=== PATIENT | female | born 2005 ===

== ENCOUNTER 2024-06-24 11:04 | Emergency (ER) | payer OTHER, SELFPAY ==
[2024-06-24 11:06] VITALS: BP 93/62; PULSE 69; RESP 16; TEMP 36.8; O2SAT 100; BMI 26.9
--- NOTE | 2024-06-24 11:10 | ED.GENADULT ---
HPI - General Adult General Chief complaint: Urogenital-Female Stated complaint: UTI Pain w/Urination Time Seen by Provider: 06/24/24 11:37 Source: patient, RN notes reviewed and old records reviewed Mode of arrival: ambulatory Limitations: no limitations History of Present Illness ED Provider: Mellisa HPI narrative: Patient is a 19-year-old female presenting with complaint of dysuria and suprapubic pain for one day. Denies frequency, fevers. Unsure possibility of but on OCPs. MD complaint: dysuria Onset (ago): day(s) Related Data Previous Rx's ?Medication ?Instructions ?Recorded cefuroxime axetil 250 mg tablet 250 mg PO BID #14 tabs 06/24/24 phenazopyridine 200 mg tablet 200 mg PO TID PRN pain 6 doses #6 06/24/24 tabs Allergies Allergy/AdvReac Type Severity Reaction Status Date / Time No Known Allergies Allergy Verified 06/24/24 11:10 Review of Systems Review of Systems: As per HPI Yes all other systems are reviewed and are negative Constitutional: Constitutional: Reports as per HPI [facility] Social History Social History Advance Directives: No Advance Directives Information Provided: Yes Physical Exam ED Vital Signs: Vital Signs - 24 hr 06/24/24 11:06 Temperature 98.2 F Pulse Rate 69 Respiratory Rate 16 Blood Pressure 93/62 Pulse Oximetry 100 Oxygen Delivery Method Room Air BMI result Body Mass Index 26.9 Vital signs have been reviewed and appear to be correct. Blood pressure normal. Heart rate normal. Respiratory rate normal. Temperature normal. Oxygen saturation normal. Const General: cooperative, healthy appearing and no acute distress Orientation/consciousness: oriented to person, oriented to place, oriented to time and patient oriented x3 Limitations: no limitations HENMA Head: Yes normocephalic and Yes atraumatic Ears: external ears normal General nose exam: Normal external nose present Face and sinus: Yes face symmetric Mouth: oropharynx normal and moist mucous membranes Throat: Yes uvula midline Eyes Pupils: Equal, round and reactive pupils present Neck Neck: Yes normal visual inspection and Yes supple Resp Effort & Inspection: normal respiratory effort and able to speak in complete sentences Auscultation: clear to auscultation bilaterally Cardio Rate: regular rate Rhythm: regular rhythm Heart sounds: S1 normal heart sound present and S2 normal heart sound present GI Palpation (GI): Soft to palpation and nontender Auscultation: normoactive bowel sounds General: Yes no CVA tenderness Back/Spine/Pelvis Back: no CVA tenderness Skin General skin exam: elasticity normal and turgor normal Neuro General: oriented to person, oriented to place, oriented to time, patient oriented x3, moves all extremities, no focal motor deficits and CN's II-XI intact bilaterally Cranial nerves: Yes Equal, round and reactive pupils present Cognition (Neuro): normal cognition Extrem General: Yes full ROM, Yes no pedal edema and Yes no calf tenderness Psych Mental Status: mental status grossly normal Affect: normal affect Thought process: Normal thought process present Course Course Course Narrative: This is a rapid medical exam performed by Lew Pak NP: Additional HPI, ROS, PE not included below will be deferred to primary provider. Patient is a 19-year-old female presenting with complaint of dysuria and suprapubic pain for one day. Plan: UA, Upreg Medical Decision Making Medical Decision Making [facility] Narrative: Patient is a 19-year-old female presenting with complaint of dysuria and suprapubic pain for one day. On exam patient is awake, A+Ox3, VS WNL, afebrile, normal neurological exam without focal deficits, physical exam findings as above. Given reported symptoms and physical exam findings, initial differential includes but is not limited to dysuria, UTI, . Urine notable for 2+ leukocytes, 3+ blood, 2+ bacteria, negative. Will treat for UTI with cefuroxime. Return precautions discussed. Patient verbalized understanding of and agreement with plan. Differential Diagnosis Differential Diagnoses: The differential diagnosis associated with the presentation includes as per [facility] Admission/Observation Consideration of admission/observation: Escalation of care including admission/observation considered Patient would have been admitted to the hospital had their work up had any findings where hospital admission was appropriate and their clinical presentation warranted hospital admission. Lab Data [facility] Lab Attestation statement: I reviewed the patient's lab results. as per [facility] Labs: Lab Results 06/24/24 Range/Units 11:27 Urine Color Yellow Urine Appearance Cloudy Urine pH 6.0 (5.0-9.0) Ur Specific [place] <= 1.005 (1.005-1.025) Urine Protein 30 (1+) H (Neg-Trace) mg/dL Urine Glucose (UA) Negative (Negative) mg/dL Urine Ketones Negative (Negative) mg/dL Urine Blood Large (3+) H (Negative) Urine Nitrite Negative (Negative) Ur Leukocyte Esterase Moderate (2+) H (Negative) Urine RBC 6-10 H (0-2) /HPF Urine WBC 11-20 (0-5) /HPF Ur Squamous Epith Cells 11-20 (0-2) /HPF Ur Renal Epithelial Cell Present Urine Bacteria 2+ (None Seen) Hyaline Casts 0-2 (0-2) /LPF Urine Test NEGATIVE (NEGATIVE) External Record Review External record reviewed: Inpatient record, Office record and Outpatient record Prescription Management I considered prescription management with: Pain Medication and Antibiotic Discharge Plan Discharge Clinical Impression: Urinary tract infection Patient Disposition: Home, Self-Care Instructions: Urinary Tract Infection in Women (DC) Additional Instructions: You have been evaluated in the emergency department today for your urinary symptoms. Your evaluation, including urinalysis, suggests that your symptoms are due to urinary tract infection. Please take your prescribed antibiotics for the full course of medication as directed. Please follow-up with your primary care provider within 2 days. Return to the emergency department if you experience fevers 100.4? F or greater, worsening or uncontrolled pain, vomiting, flank pain, or for any other concerning symptoms. Prescriptions: New cefuroxime axetil 250 mg tablet 250 mg PO BID Qty: 14 0RF phenazopyridine 200 mg tablet 200 mg PO TID PRN (Reason: pain) Qty: 6 0RF Print Language: Mauritanian
[2024-06-24 11:35] LABS: Appearance Urine Cloudy; Color Urine Yellow; Glucose Urine UA Negative (Negative); Leukocyte Esterase Urine Moderate (2+) (Negative); Nitrite Urine Negative (Negative); Specific Gravity - Urine <= 1.005 (1.005-1.025); UMIC TRIGGER UACC YES; Urine Blood Large (3+) (Negative); Urine Ketones Negative (Negative); Urine Protein 30 (1+) mg/dL (Neg-Trace)
[2024-06-24 11:36] LABS: UPreg QC Valid YES
[2024-06-24 11:37] LABS: Urine Pregnancy NEGATIVE (NEGATIVE)
[2024-06-24 12:00] LABS: Bacteria Urine 2+ (None Seen); Hyaline Casts Urine 0-2 /LPF (0-2); Renal Epithelial Cells Urine Present; UACC Culture Trigger YES
--- OUTSIDE RECORDS SUMMARY | 2024-06-24 12:25 | XMS_ITS | Clinical Summary ---
Author Organization [address] Address [address] [place] [phone] Phone Care Team Providers Care Regulator Pin Inserter Name Role Phone Physician, Pcp Unknown Primary Care Provider Stephanie vailable Allergies No known active allergies Medications ferrous gluconate (FERGON) 324 mg (38 mg iron) tablet Take 1 tablet (324 mg total) by mouth 1 (one) time each day. 11/08/2023 Active norethindrone-et hinyl estradiol (Necon 0.5/35, 28,) 0.5-35 mg-mcg per tablet Take 1 tablet by mouth 1 (one) time each day. 11/06/2023 Active levothyroxine (SYNTHROID, LEVOTHROID) 25 mcg tabletIndication s:Abnormal laboratory test Take 1 tablet (25 mcg total) by mouth 1 (one) time each day before breakfast. 90 tablet 1 03/24/2024 Active Surgical History Surgery Date Site/Laterality Comments OTHER SURGICAL HISTORY PROCEDURE: DENIES PREVIOUS SURGERY Medical History Medical History Date Comments Patient denies medical problems DX:Patient denies medical problems Family History Medical History Relation Name Comments Uterine cancer Maternal Grandmother Breast cancer Neg Hx Ovarian cancer Neg Hx Relation Name Status Comments Father Alive Maternal Grandmother Alive Mother Alive Social History Tobacco Use Types Packs/Day Years Used Date Smoking Tobacco: Never Smokeless Tobacco: Never Tobacco Cessation:Counseling Given: Not Answered Alcohol Use Standard Drinks/Week Comments Never 0 (1 standard drink = 0.6 oz pur e alcohol) Comments Unknown Sex and Gender Information Value Date Recorded Sex Assigned at Female 02/13/2024 7:51 AM EST Legal Sex Female 11:38 AM EDT Gender Identity Female 02/13/2024 7:51 AM EST Sexual Orientation Choose not to disclose 2024 7:51 AM EST Obstetrics History Last Filed Vital Signs Vital Sign Reading Time Taken Comments Blood Pressure 100/64 02/13/2024 8:34 AM EST Pulse 81 02/13/2024 8:34 AM EST Temperature 36.2 ??C (97.2 ??F) 02/13/2024 8:34 AM ES T Respiratory Rate - - Oxygen Saturation 98% 02/13/2024 8:34 AM EST Inhaled Oxygen Concentration - - Weight 69.4 kg (153 lb) 02/13/2024 8:34 AM EST Height 160 cm (5' 3 ) 02/13/2024 8:34 AM EST Body Mass Index 27.1 02/13/2024 8:34 AM EST Plan of Treatment Health Maintenance Due Date Last Done Comments Gonorrhea/Chlamydia Screening 2004 Varicella Vaccines (1 of 2 - 13+ 2-dose series) 02/21/2017 HPV Vaccines (1 - 3-dose series) 02/21/2019 Meningococcal B Vaccine (1 o f 2 - Standard) 2020 DTaP,Tdap,and Td Vaccines (1 - Tdap) 02/21/2023 Hepatitis B Vaccines (1 of 3 - 19+ 3-dose series) 02/21/2023 COVID-19 Vaccine (1 - 2023-2 5 season) 2023 Annual Well Child Visit (3-2 1 years old) 11/25/2023 Depression Screening 11/25/2023 HIV Screening 11/25/2023 Hepatitis C Screening 11/25/2023 Social Influencers of Health Screening 11/25/2023 Influenza Vaccine (Season Ended) 2024 HIB Vaccines Aged Out No longer eligi ble based on patient's age to complete this topic Hepatitis A Vaccines Aged Out No long er eligible based on patient's age to complete this topic IPV Vaccines Aged Out No longer eligi ble based on patient's age to complete this topic MMR Vaccines Aged Out No longer eligi ble based on patient's age to complete this topic Meningococcal ACWY Vaccine Aged Out N o longer eligible based on patient's age to complete this topic Pneumococcal Vaccine: Pediat rics (0 to 5 Years) and At-Risk Patients (6 to 64 Years) Aged Out No longer eligible b ased on patient's age to complete this topic RSV Immunization Patients Un brianna 20 months Aged Out No longer eligible b ased on patient's age to complete this topic Insurance [facility] [place] [id number] Care Teams Regulator Pin Inserter Relationship Specialty Start Date End Date Physician, Pcp Unknown PCP - General 03/09/24
== END 2024-06-24 12:23 | disposition home or self-care (01) ==
PROVIDERS: Registered Nurse Emergency; Emergency Provider Emergency Medicine
DX: N39.0 Urinary tract infection, site not specified (principal); R30.0 Dysuria; R31.9 Hematuria, unspecified; R10.2 Pelvic and perineal pain; Z79.899 Other long term (current) drug therapy
CPT/HCPCS: 81001; 81025; 87086; 99282; 99283

== ENCOUNTER 2024-09-08 12:56 | Emergency (ER) | payer OTHER, SELFPAY ==
--- NOTE | ~2024-09-08 | CT_ITS ---
EXAMINATION: CT ABDOMEN AND PELVIS WITH CONTRAST CLINICAL INFORMATION: Diffuse abdominal pain, nausea and vomiting. COMPARISON: None available. TECHNIQUE: Multidetector volumetric images were obtained from the superior aspect of the liver through the pubic symphysis following administration 85 mL of Omnipaque 350 intravenous contrast. Sagittal and coronal reformatted images were obtained on the technologist's workstation. Oral contrast: No This CT examination was performed using dose optimization techniques as appropriate, variously including the following: *Automated exposure control *Adjustment of mA and/or kV according to patient size (this includes techniques or standardized protocols for targeted exams where dose is matched to indication/reason for exam; i.e. extremities or head) *Use of iterative reconstruction technique FINDINGS: Study is significantly limited due to motion artifact throughout the majority of the mid aspect of the scan. This significantly limits the sensitivity of the study. LUNG BASES: Mild motion artifact. Lung bases are clear. No effusions or consolidations. Normal heart size. LIVER, GALLBLADDER, AND BILIARY TREE: Motion degradation. The liver is normal in size, shape, and attenuation. No focal hepatic lesion or biliary ductal dilatation is present. The gallbladder is unremarkable with no evidence of radiopaque gallstones, gallbladder wall thickening, or obvious pericholecystic inflammatory changes. PANCREAS: Motion degradation, no gross abnormality. SPLEEN: Motion degradation. No gross abnormality. ADRENAL GLANDS: Unremarkable. KIDNEYS AND URETERS: Motion degradation. The kidneys are normal in size, shape, and attenuation. No gross hydronephrosis, hydroureter, or calculi seen. No perinephric stranding. BLADDER: Unremarkable. GASTROINTESTINAL TRACT: Normal appendix. No acute findings of the small bowel or large bowel allowing for motion degradation, particularly involving the mid and upper abdominal aspect of the bowel structures. No rectal abnormality. ABDOMINAL WALL: No significant hernia is appreciated. LYMPH NODES: No abnormal lymphadenopathy within the confines of motion artifact. VASCULAR: Unremarkable. PELVIC VISCERA: Unremarkable. OSSEOUS STRUCTURES: Unremarkable. CT/CT abdomen pelvis w IV con IMPRESSION: 1. Motion degraded examination, limiting sensitivity. Within these confines, no acute finding in the abdomen or pelvis. Electronically signed by: Dread Loera MD 09/08/2024 04:07 PM EDT
--- NOTE | 2024-09-08 13:13 | ED_ITS ---
HPI - Abdominal Pain General Chief Complaint: Abdominal Pain Stated Complaint: abd pain Time Seen by Provider: 09/08/24 13:41 Source: patient Mode of arrival: ambulatory Limitations: no limitations History of Present Illness ED Provider: Jayda Li PA-C HPI narrative: 19-year-old female presents to the ER for evaluation of diffuse abdominal pain and nausea that started yesterday. She reports the pain is improved to a 7 or an 8 after taking ibuprofen. She reports the pain is mostly in the upper half of her abdomen from the umbilicus to the epigastric area. It is associated with nausea but no vomiting. She had a normal bowel movement this morning without blood or mucus. No known sick contacts. No fever or chills. No chest pain or shortness of breath. Her last menstrual period was 4 days ago and is now resolved. She denies any urinary symptoms, vaginal discharge or bleeding. 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 MD elicited complaint: abdominal pain and other (nausea) Onset (ago): day(s) (1) Pain Consistency: constant Location: diffuse Severity: moderate Pain scale (0-10): 7 Quality: stabbing Radiation: none Migration to: no migration Exacerbating factors: nothing Relieving factors: nothing Associated symptoms: nausea Related Data Previous Rx's ?Medication ?Instructions ?Recorded cefuroxime axetil 250 mg tablet 250 mg PO BID #14 tabs 06/24/24 phenazopyridine 200 mg tablet 200 mg PO TID PRN pain 6 doses #6 06/24/24 tabs ondansetron 4 mg disintegrating 4 mg PO Q8H PRN nausea and 09/08/24 tablet vomiting #7 tabs Allergies Allergy/AdvReac Type Severity Reaction Status Date / Time No Known Allergies Allergy Verified 09/08/24 13:15 Review of Systems Review of Systems Yes all other systems are reviewed and are negative PMFSH Social History Social History Advance Directives: No Advance Directives Information Provided: No Do you have a plan to hurt others: No Plan Physical Exam ED Exam Exam: Appearance: Alert. Oriented X3. No acute distress. Head: normocephalic, atraumatic. Eyes: Pupils equal, round and reactive to light. ENT: Pharynx normal. No tonsillar swelling or exudate. Neck: Normal inspection. Neck supple. CVS: Normal heart rate and rhythm. Pulses normal. Respiratory: No respiratory distress. Breath sounds normal. Abdomen: Soft with moderate diffuse tenderness in the right middle abdomen, right upper quadrant, periumbilical area and left upper quadrant. No rebound or guarding. Normal active +BS x4 Skin: Skin warm and dry. Normal skin color. Normal skin turgor. No rashes. Extremities: No lower extremity edema. No joint swelling. Neuro/psych: Oriented X 3. No motor deficit. No sensory deficit. CN II-XII intact. Normal speech and cognition. Flat affect Vital Signs: Vital Signs - 24 hr 09/08/24 13:14 Temperature 98 F Pulse Rate 68 Respiratory Rate 18 Blood Pressure 100/60 Pulse Oximetry 98 Oxygen Delivery Method Room Air BMI result Body Mass Index 24.8 Course Course Course Narrative: This is an RME performed by Daysi Arteaga CNP: Additional HPI, ROS, PE not included below will be deferred to primary provider. Patient is a 19-year-old female who presents emergency department for evaluation of diffuse abdominal pain, dry heaves/nausea but no vomiting or diarrhea. Denies genitourinary symptoms. Denies possibility for . Plan: Serum labs, urinalysis viral serologies Medical Decision Making Medical Decision Making MDM Narrative: Female with no medical history presents to the ER for evaluation of a diffuse abdominal pain and nausea for the last 1 day. Pain is at a 7 or an 8 and she has tenderness on examination. Her lab work is reassuring with normal LFTs and lipase. CT scan of the abdomen does not show any acute abnormalities. Upon review of the images she does have some moderate stool burden. This may be contributing to her pain. She is tolerating p.o. here. She is feeling better after Toradol and fluids. At this time discharge home with bland diet, laxatives prn and outpatient follow-up is appropriate. Patient agrees with plan is stable for discharge home Differential Diagnosis Differential Diagnoses: The differential diagnosis associated with the presentation includes Gastritis, gastroenteritis, pancreatitis, cholecystitis, diverticulitis, appendicitis, UTI Lab Data [facility] Lab Attestation statement: I reviewed the patient's lab results. Mild anemia, normal LFTs and lipase 09/08/24 13:29 09/08/24 13:29 Labs: Lab Results 09/08/24 Range/Units 13: WBC 4.9 (4.8-10.8) X10*3/uL RBC 3.81 L (4.20-5.50) X10*6/uL Hgb 9.9 L (12.0-16.0) g/dl Hct 30.8 L (37.0-47.0) % MCV 80.8 (80.0-98.0) fL MCH 26.0 L (27.0-33.0) pg MCHC 32.1 (31.0-35.0) g/dl RDW 15.2 (11.0-16.0) % Plt Count 312 (160-400) X10*3/uL MPV 9.3 L (9.4-12.3) fL Immature Gran % (Auto) 0.2 (0.0-0.4) % Neut % (Auto) 36.9 L (45-73) % Lymph % (Auto) 52.5 H (20-40) % [place] % (Auto) 5.7 (2-11) % Eos % (Auto) 4.5 H (0-4) % Baso % (Auto) 0.2 (0-2) % Lymph # (Auto) 2.6 (1.2-4.9) X10*3/uL [place] # (Auto) 0.3 (0.1-1.2) X10*3/uL Eos # (Auto) 0.2 (0.0-0.4) X10*3/uL Baso # (Auto) 0.0 (0.0-0.2) X10*3/uL Abs Immat Gran (auto) 0.01 (0.00-0.03) X10*3/uL Absolute Neuts (auto) 1.8 L (2.0-8.3) x10*3/uL Absolute Nucleated RBC 0.000 (0.0-0.012) X10*3/uL Nucleated RBC % (auto) 0.0 (0.0-0.2) /100WBC Sodium 138 (135-145) mmol/L Potassium 3.7 (3.3-5.1) mmol/L Chloride 109 H (96-108) mmol/L Carbon Dioxide 23 (22-29) mmol/L Anion Gap 10 L (12-20) BUN 10 (9-16) mg/dL Creatinine 0.74 (0.5-1.4) mg/dL Estim Creat Clear Calc 108.8 Estimated GFR > 60 Random Glucose 107 (60-115) mg/dL Calcium 8.8 (8.4-10.2) mg/dL Total Bilirubin 0.4 (0.0-1.0) mg/dL AST 27 (5-31) U/L ALT 13 (0-31) U/L Alkaline Phosphatase 62 (39-117) U/L Total Protein 7.1 (6.5-8.0) g/dL Albumin 4.0 (3.5-5.0) g/dL Lipase 26 (8-78) U/L Urine Color Yellow Urine Appearance Clear Urine pH 8.0 (5.0-9.0) Ur Specific [place] 1.015 (1.005-1.025) Urine Protein Negative (Neg-Trace) mg/dL Urine Glucose (UA) Negative (Negative) mg/dL Urine Ketones Negative (Negative) mg/dL Urine Blood Negative (Negative) Urine Nitrite Negative (Negative) Ur Leukocyte Esterase Trace H (Negative) Urine RBC 0-2 (0-2) /HPF Urine WBC 0-5 (0-5) /HPF Ur Squamous Epith Cells 6-10 (0-2) /HPF Urine Bacteria 2+ (None Seen) Hyaline Casts 0-2 (0-2) /LPF Urine Test NEGATIVE (NEGATIVE) Independent Interpretation I performed an independent interpretation of an: CT Scan Interpretation: CT scan with some food contents in the stomach and proximal small intestine, no air-fluid levels to suggest obstruction, no colonic inflammation, no visible abscess or perforation Radiology Impression Discussion of test interpretation with radiology: I have reviewed the radiologist's reading. Prescription Management I considered prescription management with: Pain Medication and Antibiotic Medications Administered Discontinued Medications Generic Name Dose Route Start Last Admin Trade Name Freq PRN Reason Stop Dose Admin Iohexol 100 ml 09/08/24 15:50 09/08/24 15:53 Iohexol 350 Mg/Ml 100 Ml Infus..Btl IV 09/08/24 15:51 85 ml ONCE ONE Administration Ketorolac Tromethamine 15 mg 09/08/24 14:14 09/08/24 14:45 Ketorolac Tromethamine 15 Mg/Ml Vial IVPUSH 09/08/24 14:15 15 mg ONCE ONE Administration Ondansetron HCl 4 mg 09/08/24 14:14 09/08/24 14:46 Ondansetron Hcl 4 Mg/2 Ml Vial IVPUSH 09/08/24 14:15 4 mg ONCE ONE Administration Critical Care Time Critical Care Time Critical Care Time: No Discharge Plan Discharge Clinical Impression: Abdominal pain Qualifiers: Abdominal location: generalized Qualified Code(s): R10.84 - Generalized abdominal pain Patient Disposition: Home, Self-Care Instructions: Abdominal Pain (ED) Additional Instructions: Your lab workup today was reassuring. Your CT scan did not show any acute abnormalities. You have a large amount of stool in your colon, this may be causing some of your abdominal pain. Recommend [id number] laxatives as needed to have regular, soft bowel movements. Stick to a bland diet where not feeling well. Take the prescribed nausea medication as needed. Prescriptions: New ondansetron 4 mg tablet,disintegrating 4 mg PO Q8H PRN (Reason: nausea and vomiting) Qty: 7 0RF No Action cefuroxime axetil 250 mg tablet 250 mg PO BID Qty: 14 0RF phenazopyridine 200 mg tablet 200 mg PO TID PRN (Reason: pain) Qty: 6 0RF Stand Alone Forms: Work/School Release Print Language: Frisian
[2024-09-08 13:14] VITALS: BP 100/60; PULSE 68; RESP 18; TEMP 36.6; O2SAT 98; BMI 24.8
--- NOTE | 2024-09-08 13:42 | PC.NURSE ---
Patient refused SARS/Flu/RSV swab. Blood work previously drawn, results pending.
[2024-09-08 13:44] LABS: Hematocrit 30.8 % (37.0-47.0); Hemoglobin 9.9 g/dl (12.0-16.0); Imm Gran Abs Auto 0.01 X10*3/uL (0.00-0.03); Imm Gran Pct Auto 0.2 % (0.0-0.4); Lymphocytes Absolute Auto 2.6 X10*3/uL (1.2-4.9); MANUAL DIFF FLAG NO; Mean Corpuscular HGB Conc 32.1 g/dl (31.0-35.0); Mean Corpuscular Hemoglobin 26.0 pg (27.0-33.0); Mean Corpuscular Volume 80.8 fL (80.0-98.0); NRBC Abs Auto 0.000 X10*3/uL (0.0-0.012); NRBC Pct Auto 0.0 /100WBC (0.0-0.2); Platelet Count 312 X10*3/uL (160-400); Red Blood Count 3.81 X10*6/uL (4.20-5.50); White Blood Count 4.9 X10*3/uL (4.8-10.8)
[2024-09-08 13:46] LABS: Appearance Urine Clear; Glucose Urine UA Negative (Negative); PH 8.0 (5.0-9.0); Specific Gravity - Urine 1.015 (1.005-1.025); UMIC TRIGGER UACC YES
[2024-09-08 13:47] LABS: UPreg QC Valid YES
[2024-09-08 14:00] LABS: Alanine Aminotransferase 13 U/L (0-31); Albumin Level 4.0 g/dL (3.5-5.0); Alkaline Phosphatase 62 U/L (39-117); Anion Gap 10 (12-20); Aspartate Amino Transferase 27 U/L (5-31); Blood Urea Nitrogen 10 mg/dL (9-16); Calcium 8.8 mg/dL (8.4-10.2); Carbon Dioxide 23 mmol/L (22-29); Chloride 109 mmol/L (96-108); Creatinine Clr Calc Pharmacy 108.8; Estimated Glomerular Filt Rate > 60; Lipase 26 U/L (8-78); Potassium 3.7 mmol/L (3.3-5.1); Sodium 138 mmol/L (135-145); Total Protein 7.1 g/dL (6.5-8.0)
--- OUTSIDE RECORDS SUMMARY | 2024-09-08 14:35 | XMS_ITS | Clinical Summary ---
Author Organization [address] Address [address] [place] [phone] Phone Care Team Providers Care Bit Gatherer Name Role Phone Physician, Pcp Unknown Primary [...] 81 02/13/2024 8:34 AM EST Temperature 36.2 C (97.2 F) 02/13/2024 8:34 AM EST Respiratory Rate - - Oxygen Saturation 98% [...] Child Visit (3-2 1 years old) 11/25/2023 HIV Screening 11/25/2023 Hepatitis C Screening 11/25/2023 Social Influencers of Health Screening 11/25/2023 Depression Screening 02/12/2024 Influenza Vaccine (#1) 2024 HIB Vaccines Aged Out No longer [...] 5 Years) and At-Risk Patients (6 to 49 Years) Aged Out No longer eligible b ased on patient's age to complete this topic RSV Immunization Patients Un brianna 20 months Aged Out No longer eligible b ased on patient's age to complete this topic Insurance [facility] [employer] Care Teams Bit Gatherer Relationship Specialty Start Date End Date Physician, Pcp Unknown PCP - General 03/09/24
--- NOTE | 2024-09-08 15:51 | PC.NURSE ---
Back documentation This nurse obtained IV access in left AC, pt tolerated it well. PT states her mid abd pain is out of 10. Warm blanket given call kendrick within reach.
[2024-09-08] MEDS: iohexoL 350 MG/ML 100 ML INFUS..BTL IV (15:53)
--- NOTE | 2024-09-08 16:30 | MHC.EDTECH ---
Patient refused to have SARS swab done.
[2024-09-08 17:00] VITALS: BP 100/60; PULSE 68; RESP 18; TEMP 36.6; O2SAT 98
== END 2024-09-08 17:00 | disposition home or self-care (01) ==
PROVIDERS: Nurse Practitioner Family; Emergency Provider Emergency Medicine
DX: R10.84 Generalized abdominal pain (principal)
CPT/HCPCS: 74177; 80053; 81001; 81025; 83690; 85025; 96374; 96375; 99283; 99284; J1885; J2405; Q9967

== ENCOUNTER → 2024-09-08 14:14 | Outpatient (BNV) | payer OTHER, SELFPAY | PROVIDERS: Emergency Provider Emergency Medicine; Visit Provider Radiology Diagnostic Radiology | DX: R10.84 Generalized abdominal pain (principal) | CPT/HCPCS: 74177 ==

== ENCOUNTER 2024-12-12 18:41 | Emergency (ER) | payer OTHER, SELFPAY ==
--- OUTSIDE RECORDS SUMMARY | 2024-12-07 08:45 | XMS_ITS | Encounter Summary ---
Author Organization [facility] Address [id number] [place] [phone] Care Team Providers Care Record Changer Name Role Phone Nayeli Saeed ELECTROTYPE SERVICER Primary Care Provider + [phone] Reason for Visit * Reason Comments painful cycle Encounter Details Date Type Department Care Team ([facility] st Contact Info) Description 12/07/2024 8:45 AM EDT Office Visit Obstetrics and Gynecology [address] [phone] Quynh Conklin, [address] [address] Irregular periods (Primary Dx) Social History Tobacco Use Types Packs/Day Years Used Date Smoking Tobacco: Never Smokeless Tobacco: Never Alcohol Use Standard Drinks/Week Comments Never 0 (1 standard drink = 0.6 oz pur e alcohol) Comments Unknown Sex and Gender Information Value Date Recorded Sex Assigned at Female 02/13/2024 7:51 AM EST Legal Sex Female 11:38 AM EDT Gender Identity Female 02/13/2024 7:51 AM EST Sexual Orientation Choose not to disclose 2024 7:51 AM EST documented as of this encounter Last Filed Vital Signs Vital Sign Reading Time Taken Comments Blood Pressure 99/55 12/07/2024 8:50 AM EDT Pulse 72 12/07/2024 8:50 AM EDT Temperature - - Respiratory Rate 14 12/07/2024 8:50 AM EDT Oxygen Saturation - - Inhaled Oxygen Concentration - - Weight 68.9 kg (151 lb 12.8 oz) 12/07/2024 8:50 AM EDT Height 156 cm (5' 1.42 ) 12/07/2024 8:50 AM EDT Body Mass Index 28.29 12/07/2024 8:50 AM EDT documented in this encounter Progress Notes * Quynh Kimlisy, LORENA - 12/07/2024 8:45 AM EDT 12/07/2024 Chief Complaint Patient presents with painful cycle Subjective: Celestina Burgos is a 19 y.o. who presents for irreg periods. States she stopped taking OCPs because she did not like how she felt on them, periods are coming monthly but sometimes restart three days after they finish. Would like PCOS testing to make sure I still have it . Denies ever being SA Review of Systems: As in HPI. Problem List[1] Medical History[2] Surgical History[3] Family History[4] Social History Socioeconomic History Marital status: Unknown Spouse name: Not on file Number of children: Not on file Years of education: Not on file Highest education level: Not on file Occupational History Not on file Tobacco Use Smoking status: Never Smokeless tobacco: Never Substance and Sexual Activity Alcohol use: Never Drug use: Never Sexual activity: Not on file Other Topics Concern Not on file Social History Narrative Not on file OB History No obstetric history on file. Prior to Admission medications Medication Sig Start Date End Date Taking? Authorizing Provider ferrous gluconate (FERGON) 324 mg (38 mg iron) tablet Take 1 tablet (324 mg total) by mouth 1 (one)time each day. 11/08/23 Historical Provider, levothyroxine (SYNTHROID, LEVOTHROID) 25 mcg tablet Take 1 tablet (25 mcg total) by mouth 1 (one) time each day before breakfast. 03/24/24 Rupert Mak MD norethindrone-ethinyl estradiol (Necon 0.5/35, 28,) 0.5-35 mg-mcg per tablet Take 1 tablet by mouth1 (one) time each day. 11/06/23 Historical Provider, Allergies[5] Objective: Vitals: 12/07/24 0850 BP: 99/55 Pulse: 72 Resp: 14 Weight: 68.9 kg (151 lb 12.8 oz) Height: 1.56 m (61.42 ) Gen: Well-appearing on today's exam NEUROLOGIC: speech fluent, grossly intact PSYCH: Mood and affect appropriate. Alert and oriented x 3. Assessment/Plan: 19 y.o. with: 1. Irregular periods Testosterone, total Follicle stimulating hormone Estradiol 52-Bkqlr-Vtwkufuygvaxajusvav Orders Placed This Encounter Procedures Testosterone, total Standing Status: Future Expiration Date: 12/07/2025 Release to patient: Immediate [1] Follicle stimulating hormone Standing Status: Future Expiration Date: 12/07/2025 Estradiol Standing Status: Future Expiration Date: 12/07/2025 37-Evtqw-Ixyarojklpsntzpbxvs Standing Status: Future Expiration Date: 12/07/2025 Discussed that the dx was made d/t appearance of ovaries on u/s and sx of hyperandrogenism but we can do labwork for confirmation. Pt declines tx at this time, discussed importance of periods at least q 3 months and to let us know if she would like to discuss alternatives to OCPs. Also discussed other health risks of PCOS including DM and elevated lipids, advised to follow with PCP. Quynh Conklin CNM [1] There is no problem list on file for this patient. [2] Past Medical History: Diagnosis Date Patient denies medical problems DX:Patient denies medical problems [3] Past Surgical History: Procedure Laterality Date OTHER SURGICAL HISTORY PROCEDURE: DENIES PREVIOUS SURGERY [4] Family History Problem Relation Name Age of Onset Uterine cancer Maternal Grandmother 74.00 Breast cancer Neg Hx Ovarian cancer Neg Hx [5] No Known Allergies documented in this encounter Plan of Treatment Not on file documented as of this encounter Procedures Procedure Name Priority Date/Time Associated Diagnosis Comments 18-[id number]-ULCKCHXZTBL ESTERONE Routine 12/07/2024 9:20 AM EDT Irregular periods ESTRADIOL Routine 12/07/2024 9:20 AM EDT Irregular periods COMPLETE BLOOD COUNT Routine 12/07/2024 9:20 AM EDT Irregular periods TESTOSTERONE, TOTAL Routine 12/07/2024 9 :20 AM EDT Irregular periods FOLLICLE STIMULATING HORMONE Routine 12/07/2024 9:20 AM EDT Irregular periods documented in this encounter Results * (ABNORMAL) Complete blood count (12/07/2024 9:20 AM EDT) WBC 4.7(L) 4.8 - 10.8 K/mcL LAB HEMETOLOGY METHOD 12/07/2024 10:[address] [facility] RBC 4.10 3.80 - 4.80 M/mcL LAB HEMETOLOGY METHOD 12/07/2024 10:[address] [facility] Hemoglobin 10.2(L) 11.5 - 16.0 g/dL LAB HEMETOLOGY METHOD 12/07/2024 10:[address] [facility] Hematocrit 33.8(L) 35.0 - 47.0 % LAB HEMETOLOGY METHOD 12/07/2024 10:[address] [facility] MCV 82.2 79.0 - 98.0 FL LAB HEMETOLOGY METHOD 12/07/2024 10:[address] [facility] MCH 24.8(L) 27.0 - 32.0 pcg LAB HEMETOLOGY METHOD 12/07/2024 10:[address] [facility] MCHC 30.2(L) 32.0 - 37.0 g/dL LAB HEMETOLOGY METHOD 12/07/2024 10:[address] [facility] RDW 15.7(H) 11.0 - 15.0 % LAB HEMETOLOGY METHOD 12/07/2024 10:[address] [facility] Platelets 315 130 - 400 K/mcL LAB HEMETOLOGY METHOD 12/07/2024 10:[address] [facility] MPV 10.4 7.0 - 11.0 FL LAB HEMETOLOGY METHOD 12/07/2024 10:[address] [facility] NRBC 0.0 <1.0 % LAB HEMETOLOGY METHOD 12/07/2024 10:[address] [facility] NRBC Absolute 0.00 <0.10 K/[facility] LAB HEMETOLOGY METHOD 12/07/2024 10:[address] [facility] Blood Venous blood specimen / Unknown Venipuncture / Unknown 12/07/2024 9:20 AM EDT 12/07/2024 9:20 AM EDT [facility] BLOOD ORDERABLES Final Result [facility] [address] [place] [address], * 99-Tibem-Xebievlpxfxpvlyxcrb (12/07/2024 9:20 AM EDT) 17-alpha Hydroxyprogesterone 98 35 - 413 ng/dL 12/09/2024 10:56 AM EDT [facility] Comment: Test performed at [facility], [address] , [place] [address] Adriana Muñoz MD, PhD - Mcat Instructor Blood Venous blood specimen / Unknown Venipuncture / Unknown 12/07/2024 9:20 AM EDT 12/07/2024 9:20 AM EDT Quynh Conklin [facility] BLOOD ORDERABLES Final Result Performing Organization Address City/[facility]/ZIP Co de Phone Number [facility] [address] [place] [address] * Estradiol (12/07/2024 9:20 AM EDT) Estradiol 51 See below pcg/mL LAB CHEMISTRY METHOD 12/07/2024 2:[address] [facility] Comment: ESTRADIOL REFERENCE RANGES (PG/ML) FEMALES NORMALLY MENSTRUATING: FOLLICULAR PHASE 21.4 - 164.8 MIDCYCLE PEAK 49.9 - 367.2 LUTEAL PHASE 40.2 - 259.0 POSTMENOPAUSAL: ON HRT <11 - 462.1 UNTREATED <11 - 58.3 Fulvestrant has been shown to cross-react with the estradiol assay and cause falsely elevated results. For patients being treated with fulvestrant, Estradiol ultrasensitive should be ordered. This test is performed by LC/MS and is not expected to show cross reactivity to fulvestrant. Blood Venous blood specimen / Unknown Venipuncture / Unknown 12/07/2024 9:20 AM EDT 12/07/2024 9:20 AM EDT Quynh [facility] LAB BLOOD ORDERABLES Final Result Performing Organization Address [facility] Co de Phone Number [facility] [address] [place] [address], * Follicle stimulating hormone (12/07/2024 9:20 AM EDT) [facility] Follicle Stimulating Hormone 7.1 See Comment mIU/mL LAB CHEMISTRY METHOD 12/07/2024 5:[address] [facility] Comment: FSH REFERENCE RANGES (MIU/ML) FEMALES NORMALLY MENSTRUATING: FOLLICULAR PHASE 2.3 - 12.6 MIDCYCLE PEAK 5.2 - 17.5 LUTEAL PHASE 1.7 - 9.5 POSTMENOPAUSAL: ON HRT 5.9 - 72.8 UNTREATED 12.7 - 132.2 Blood Venous blood specimen / Unknown Venipuncture / Unknown 12/07/2024 9:20 AM EDT 12/07/2024 9:20 AM EDT Quynh [facility] LAB BLOOD ORDERABLES Final Result Performing Organization Address [facility]/ZIP Co de Phone Number [facility] [address] [place] [address], * Testosterone, total (12/07/2024 9:20 AM EDT) [facility] Testosterone 24 15 - 42 ng/dL LAB CHEMISTRY METHOD 12/07/2024 6:[address] [facility] Blood Venous blood specimen / Unknown Venipuncture / Unknown 12/07/2024 9:20 AM EDT 12/07/2024 9:20 AM EDT Quynh Conklin CNM LAB BLOOD ORDERABLES Final Result [facility]) [facility] [address] [place] [address], documented in this encounter Visit Diagnoses Diagnosis Irregular periods- Primary documented in this encounter Care Teams Record Changer Relationship Specialty Start Date End Date Nayeli Saeed NP [address] [place] [phone] PCP - General Pediatrics 12/07/24 documented as of this encounter
--- OUTSIDE RECORDS SUMMARY | 2024-12-11 12:43 | XMS_ITS | Encounter Summary ---
Author Organization [facility] Address [address] [place] [phone] Care Team Providers Care Remote Computer Terminal Operator Name Role Phone Nayeli Saeed ART MUSEUM AIDE Primary Care Provider [phone]- [phone] Reason for Referral * Imaging (Routine) - Authorized Specialty Diagnoses / Procedures Referred By Contac t Referred To Contact Radiology Diagnoses Irregular periods Procedures US Pelvis Non OB Complete w Transvaginal Quynh Conklin CNM [address] [place] [address] Phone: tel: fax: [facility] Referral ID Status Reason Start Date Expiration Date V isits Requested Visits Authorized [id number] Authorized 12/09/2024 12/09/2025 1 1 Reason for Visit * Imaging (Routine) - Authorized Specialty Diagnoses / Procedures Referred By Michael billy Referred To Contact Radiology Diagnoses Irregular periods Procedures US Pelvis Non OB Complete w Transvaginal Quynh Conklin CNM [address] [place] [address] Phone: tel: fax: [facility] Referral ID Status Reason Start Date Expiration Date V isits Requested Visits Authorized [id number] Authorized 12/09/2024 12/09/2025 1 1 Encounter Details Date Type Department Care Team (Latest Contact Info) Description 12/11/2024 12:43 PM EDT - 12/11/2024 11:59 PM EDT Hospital Encounter [facility] Ultrasound [address] [place] [phone] Irregular periods Discharge Disposition: Home or Self Care Social History Tobacco Use Types Packs/Day Years [...] AM EST documented as of this encounter Medications at Time of Discharge ferrous gluconate (FERGON) 324 mg (38 mg iron) tablet Take 1 tablet (324 mg total) by mouth 1 (one) time each day. 90 each 1 12/09/2024 06/07/2025 levothyroxine (SYNTHROID, LEVOTHROID) 25 mcg tabletIndications :Abnormal laboratory test Take 1 tablet (25 mcg total) by mouth 1 (one) time each day before breakfast. 90 tablet 1 03/24/2024 norethindrone-eth inyl estradiol (Necon 0.5/35, 28,) 0.5-35 mg-mcg per tablet Take 1 tablet by mouth 1 (one) time each day. 11/06/2023 documented as of this encounter Discharge Disposition Disposition Code Departure Means Destination Home or Self Care documented in this encounter Plan of Treatment Pending Results Name Type Priority Associated Diagnoses Date /Time US Pelvis Non OB Complete w Transvaginal Imaging Routine Irregular periods 12/11/2024 2:04 PM EDT Scheduled Orders Name Type Priority Associated Diagnoses Orde r Schedule US Pelvis Non OB Complete w Transvaginal Imaging Routine Irregular periods Once for 1 Occurrences starting 12/11/2024 until 12/11/2024 documented as of this encounter Visit Diagnoses Diagnosis Irregular periods documented in this encounter Care Teams Remote Computer Terminal Operator Relationship Specialty Start Date End Date Nayeli Saeed NP [address] [place] [phone] PCP - General Pediatrics 12/07/24 documented as of this encounter
[2024-12-12 18:51] VITALS: BP 110/76; PULSE 70; RESP 18; TEMP 36.2; O2SAT 97; BMI 34.0
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
[2024-12-12 19:50] LABS: MANUAL DIFF FLAG NO
[2024-12-12 19:54] LABS: Hematocrit 31.2 % (37.0-47.0); Hemoglobin 9.9 g/dl (12.0-16.0); Imm Gran Abs Auto 0.01 X10*3/uL (0.00-0.03); Imm Gran Pct Auto 0.2 % (0.0-0.4); Lymphocytes Absolute Auto 2.9 X10*3/uL (1.2-4.9); Mean Corpuscular HGB Conc 31.7 g/dl (31.0-35.0); Mean Corpuscular Hemoglobin 25.3 pg (27.0-33.0); Mean Corpuscular Volume 79.6 fL (80.0-98.0); NRBC Abs Auto 0.000 X10*3/uL (0.0-0.012); NRBC Pct Auto 0.0 /100WBC (0.0-0.2); Platelet Count 297 X10*3/uL (160-400); Red Blood Count 3.92 X10*6/uL (4.20-5.50); White Blood Count 5.8 X10*3/uL (4.8-10.8)
[2024-12-12 20:11] LABS: Alanine Aminotransferase 11 U/L (0-31); Albumin Level 4.4 g/dL (3.5-5.0); Alkaline Phosphatase 76 U/L (39-117); Anion Gap 11 (12-20); Aspartate Amino Transferase 17 U/L (5-31); Blood Urea Nitrogen 12 mg/dL (9-16); Calcium 9.4 mg/dL (8.4-10.2); Carbon Dioxide 25 mmol/L (22-29); Chloride 107 mmol/L (96-108); Creatinine Clr Calc Pharmacy 99.6; Estimated Glomerular Filt Rate > 60; Lipase 32 U/L (8-78); Magnesium 2.1 mg/dL (1.6-2.6); Potassium 3.8 mmol/L (3.3-5.1); Sodium 139 mmol/L (135-145); Total Protein 7.8 g/dL (6.5-8.0)
[2024-12-12 23:50] LABS: Appearance Urine Cloudy; Glucose Urine UA Negative (Negative); PH 6.5 (5.0-9.0); Specific Gravity - Urine 1.025 (1.005-1.025)
[2024-12-12 23:51] LABS: UPreg QC Valid YES
--- OUTSIDE RECORDS SUMMARY | 2024-12-13 | XMS_ITS | Encounter Summary ---
Author Organization [facility] Address [id number] [place] [phone] Care Team Providers Care Reel Repairer Name Role Phone Nayeli Saeed TEST MAN Primary Care Provider [phone] Reason for Referral * Imaging (Routine) - Authorized Specialty Diagnoses / Procedures Referred By Contac t Referred To Contact Radiology Diagnoses Irregular periods Procedures US Pelvis Non OB Complete w Transvaginal Quynh Conklin CNM [address] [place] [phone] Phone: tel: fax: [facility] Referral ID Status Reason Start Date Expiration Date V isits Requested Visits Authorized [id number] Authorized 12/09/2024 12/09/2025 1 1 Encounter Details Date Type Department Care Team ([facility] Contact Info) Description 12/08/2024 Results Follow-Up Obstetrics and Gynecology [address] [phone] Odette Gibson, RN Social History Tobacco Use Types Packs/Day Years [...] AM EST documented as of this encounter Ordered Prescriptions Prescription Sig Dispense Quantity Refills Last Filled Start Date End Date ferrous gluconate (FERGON) 324 mg (38 mg iron) tablet Take 1 tablet (324 mg total) by mouth 1 (one) time each day. 90 each 1 12/09/2024 06/07/2025 documented in this encounter Progress Notes * Quynh Conklin CNM - 12/09/2024 2:31 PM EDT Please let pt know that u/s was ordered documented in this encounter Plan of Treatment Pending Results Name Type Priority Associated Diagnoses Date /Time US Pelvis Non OB Complete w Transvaginal Imaging Routine Irregular periods 12/11/2024 2:04 PM EDT Scheduled Orders Name Type Priority Associated Diagnoses Orde r Schedule US Pelvis Non OB Complete w Transvaginal Imaging Routine Irregular periods Expected: 12/09/2024, Expires: 12/09/2025 documented as of this encounter Visit Diagnoses Diagnosis Irregular periods- Primary Iron deficiency anemia due to chronic blood loss Iron deficiency anemia secondary to blood loss (chronic) documented in this encounter Discontinued Medications Medication Sig Discontinue Reason Start Date End Da te ferrous gluconate (FERGON) 324 mg (38 mg iron) tablet Take 1 tablet (324 mg total) by mouth 1 (one) time each day. Reorder 11/08/2023 12/09/2024 documented as of this encounter Care Teams Reel Repairer Relationship Specialty Start Date End Date Nayeli Saeed NP [address] [place] [phone] PCP - General Pediatrics 12/07/24 documented as of this encounter
--- OUTSIDE RECORDS SUMMARY | 2024-12-13 00:01 | XMS_ITS | Clinical Summary ---
Author Organization [address] Address [address] [place] [phone] Phone Care Team Providers Care Robotics Application Engineer Name Role Phone Nayeli Saeed NP Primary Care Provider [phone] Allergies No known active allergies Medications norethindrone-e thinyl estradiol (Necon 0.5/35, 28,) 0.5-35 mg-mcg per tablet Take 1 tablet by mouth 1 (one) time each day. 4 Active levothyroxine (SYNTHROID, LEVOTHROID) 25 mcg tabletIndicatio ns:Abnormal laboratory test Take 1 tablet (25 mcg total) by mouth 1 (one) time each day before breakfast. 90 tablet 1 5 Active ferrous gluconate (FERGON) 324 mg (38 mg iron) tablet Take 1 tablet (324 mg total) by mouth 1 (one) time each day. 90 each 1 5 06/08/19 26 Active ferrous gluconate (FERGON) 324 mg (38 mg iron) tablet Take 1 tablet (324 mg total) by mouth 1 (one) time each day. 4 12/10/19 25 Discontinu ed(Reorder ) Active Problems Problem Noted Date Diagnosed Date Iron deficiency anemia due to chronic blood loss 12/09/2024 Overview (12/09/2024): Hgb 10.2, started on daily Fe Encounters Date Type Department Care Team Description 12/11/2024 12:43 PM EDT - 12/11/2024 11:59 PM EDT Hospital Encounter [facility] Ultrasound [address] [place] [id number] Irregular periods Discharge Disposition: Home or Self Care 12/08/2024 Results Follow-Up Obstetrics and Gynecology - [address] [phone] Odette Gibson RN 12/07/2024 8:45 AM EDT Office Visit Obstetrics and Gynecology - [address] [phone] Quynh Conklin CNM Irregular periods (Primary Dx) from Last 3 Months Surgical History Surgery Date Site/Laterality Comments OTHER [...] Pulse 72 12/07/2024 8:50 AM EDT Temperature 36.2 C (97.2 F) 02/13/2024 8:34 AM EST Respiratory Rate 14 12/07/2024 8:50 AM EDT Oxygen Saturation 98% 02/13/2024 8:34 AM EST Inhaled Oxygen Concentration - - Weight 68.9 kg (151 lb 12.8 oz) 12/07/2024 8:50 AM EDT Height 156 cm (5' 1.42 ) 12/07/2024 8:50 AM EDT Body Mass Index 28.29 12/07/2024 8:50 AM EDT Plan of Treatment Health Maintenance Due Date Last Done Comments Gonorrhea/Chlamydia Screening 2004 Varicella Vaccines (1 of 2 - 13+ 2-dose series) 02/21/2017 HPV Vaccines (1 - 3-dose series) 02/21/2019 Meningococcal B Vaccine (1 o f 2 - Standard) 2020 DTaP,Tdap,and Td Vaccines (1 - Tdap) 02/21/2023 Hepatitis B Vaccines (1 of 3 - 19+ 3-dose series) 02/21/2023 Annual Well Child Visit (3-2 1 years old) 11/25/2023 HIV Screening 11/25/2023 Hepatitis C Screening 11/25/2023 Social Influencers of Health Screening 11/25/2023 Depression Screening 02/12/2024 Influenza Vaccine (#1) 2024 RSV Immunization Adult Patie nts (1 - 1-dose 75+ series) 02/21/2079 COVID-19 Vaccine Completed 09/03/2024 HIB Vaccines Aged Out No longer eligi [...] to 49 Years) Aged Out No longer eligi ble based on patient's age to complete this topic RSV Immunization Patients Un brianna 20 months Aged Out No longer eligible b ased on patient's age to complete this topic Procedures Procedure Name Priority Date/Time Associated Diagnosis Comments TESTOSTERONE, TOTAL Routine 12/07/2024 9 :20 AM EDT Irregular periods FOLLICLE STIMULATING HORMONE Routine 12/07/2024 9:20 AM EDT Irregular periods ESTRADIOL Routine 12/07/2024 9:20 AM EDT Irregular periods 08-EOPMJ-EDRYZCFOAYM ESTERONE Routine 12/07/2024 9:20 AM EDT Irregular periods COMPLETE BLOOD COUNT Routine 12/07/2024 9:20 AM EDT Irregular periods from Last 3 Months Results * 27-Nsemq-Lwknoshiffwrltlladz (12/07/2024 9:20 AM EDT) Pathologist [facility] 17-alpha Hydroxyprogesterone 98 35 - 413 ng/dL 12/09/2024 10:56 AM EDT [facility] Comment: Test performed at [facility], [address], [place] [address] Adriana Muñoz MD, PhD - Steamship Agent Blood Venous blood specimen / Unknown Venipuncture / Unknown 12/07/2024 9:20 AM EDT 12/07/2024 9:20 AM EDT Quynh Conklin [facility] BLOOD ORDERABLES Final Result Performing Organization Address City/[facility]/ZIP Co de Phone Number [facility] [address] [place] [address] * Estradiol (12/07/2024 9:20 AM EDT) Pathologist [facility] Estradiol 51 See below pcg/mL LAB CHEMISTRY METHOD 12/07/2024 2:47 PM EDT [facility] Comment: ESTRADIOL REFERENCE RANGES (PG/ML) [...] EDT 12/07/2024 9:20 AM EDT Quynh Conklin [facility] BLOOD ORDERABLES Final Result [facility] [address] [place] [address], * (ABNORMAL) Complete blood count (12/07/2024 9:20 AM EDT) WBC 4.7(L) 4.8 - 10.8 K/mcL LAB HEMETOLOGY METHOD 12/07/2024 10:15 AM EDT [facility] RBC 4.10 3.80 - 4.80 M/mcL LAB HEMETOLOGY METHOD 12/07/2024 10:15 AM EDT [facility] Hemoglobin 10.2(L) 11.5 - 16.0 g/dL LAB HEMETOLOGY METHOD 12/07/2024 10:15 AM EDT [facility] Hematocrit 33.8(L) 35.0 - 47.0 % LAB HEMETOLOGY METHOD 12/07/2024 10:15 AM EDT [facility] MCV 82.2 79.0 - 98.0 FL LAB HEMETOLOGY METHOD 12/07/2024 10:15 AM EDT [facility] MCH 24.8(L) 27.0 - 32.0 pcg LAB HEMETOLOGY METHOD 12/07/2024 10:15 AM EDT [facility] MCHC 30.2(L) 32.0 - 37.0 g/dL LAB HEMETOLOGY METHOD 12/07/2024 10:15 AM EDT [facility] RDW 15.7(H) 11.0 - 15.0 % LAB HEMETOLOGY METHOD 12/07/2024 10:15 AM EDT [facility] Platelets 315 130 - 400 K/mcL LAB HEMETOLOGY METHOD 12/07/2024 10:15 AM EDT [facility] MPV 10.4 7.0 - 11.0 FL LAB HEMETOLOGY METHOD 12/07/2024 10:15 AM EDT [facility] NRBC 0.0 <1.0 % LAB HEMETOLOGY METHOD 12/07/2024 10:15 AM EDT [facility] NRBC Absolute 0.00 <0.10 K/mcL LAB HEMETOLOGY METHOD 12/07/2024 10:15 AM EDT [facility] Blood Venous blood specimen / Unknown Venipuncture / Unknown 12/07/2024 9:20 AM EDT 12/07/2024 9:20 AM EDT [facility] Final Result [facility] [address] [place] [address], [place] [phone] * Testosterone, total (12/07/2024 9:20 AM EDT) Testosterone 24 15 - 42 ng/dL LAB CHEMISTRY METHOD 12/07/2024 6:55 PM EDT [facility] Blood Venous blood specimen / Unknown Venipuncture / Unknown 12/07/2024 9:20 AM EDT 12/07/2024 9:20 AM EDT [facility] Final Result [facility] [address] [place] [address], [place] [phone] * Follicle stimulating hormone (12/07/2024 9:20 AM EDT) Follicle Stimulating Hormone 7.1 See Comment mIU/mL LAB CHEMISTRY METHOD 12/07/2024 5:04 PM EDT [facility] Comment: FSH REFERENCE RANGES (MIU/ML) FEMALES NORMALLY MENSTRUATING: FOLLICULAR PHASE 2.3 - 12.6 MIDCYCLE PEAK 5.2 - 17.5 LUTEAL PHASE 1.7 - 9.5 POSTMENOPAUSAL: ON HRT 5.9 - 72.8 UNTREATED 12.7 - 132.2 Blood Venous blood specimen / Unknown Venipuncture / Unknown 12/07/2024 9:20 AM EDT 12/07/2024 9:20 AM EDT Quynh Conklin CNM LAB BLOOD ORDERABLES Final Result [facility] [address] [place] [address], from Last [address] [place] [place] [address] [employer] Care Teams Robotics Application Engineer Relationship Specialty Start Date End Date Nayeli Saeed NP [address] [place] [phone] PCP - General Pediatrics 12/07/24
[2024-12-13 00:16] VITALS: BP 110/76; PULSE 70; RESP 18; TEMP 36.2; O2SAT 97
== END 2024-12-13 00:17 | disposition home or self-care (01) ==
PROVIDERS: Physician Assistant; Physician Assistant Medical; Emergency Provider Emergency Medicine
DX: S30.11XA Contusion of abdominal wall, initial encounter (principal); W50.0XXA Accidental hit or strike by another person, initial encounter; Y93.9 Activity, unspecified; Y92.129 Unspecified place in nursing home as the place of occurrence of the external cause; Y99.0 Civilian activity done for income or pay
CPT/HCPCS: 36415; 80048; 80076; 81003; 81025; 83690; 83735; 84702; 85025; 99283; 99284